=== PATIENT | female | born 1975 | race Caucasian/White ===

== ENCOUNTER 2016-07-27 10:04 | Day surgery (SDC) | payer OTHER ==
[~2016-07-27 10:04] MED LIST: IV START KIT ONE; LACTATED RINGERS 1,000 ML ONE
[2016-07-27] MEDS ORDERED: SODIUM BICARBONATE 4.2% VIAL 5 ML IV ONE (10:05)
[2016-07-27] MEDS ORDERED: LIDOCAINE 1% (PRES FREE) 30 ML VIAL SUB-Q ONE (10:05)
[2016-07-27] MEDS ORDERED: METHYLENE BLUE 1% 1ML VIAL IV ONE (10:05)
[2016-07-27] MEDS ORDERED: LEVOFLOXACIN 500 MG/D5W 100 ML 100 ML IV ONE (10:10)
[2016-07-27] MEDS ORDERED: LEVOFLOXACIN 500 MG/D5W 100 ML 100 ML IV PRN (10:30)
[2016-07-27] MEDS ORDERED: KETAMINE HCL 50 MG/ML 1 ML DOSE ONE (10:38)
[2016-07-27] MEDS ORDERED: LIDOCAINE 2% (PRES FREE) 5 ML VIAL ONE (10:38)
[2016-07-27] MEDS ORDERED: MIDAZOLAM HCL 1 MG/ML 2ML VIAL ONE (10:38)
[2016-07-27] MEDS ORDERED: DEXAMETHASONE SOD PHOS 4 MG/1 ML VIAL ONE (10:38)
[2016-07-27] MEDS ORDERED: FENTANYL 100 MCG/2 ML VIAL ONE ×2 (10:38→14:23)
[2016-07-27] MEDS ORDERED: PROPOFOL 60 ML IV ONE (10:38)
[2016-07-27] MEDS ORDERED: METOCLOPRAMIDE HCL 5 MG/ML 2ML VIAL ONE (10:38)
[2016-07-27] MEDS ORDERED: ONDANSETRON 4 MG/2ML 2 ML VIAL ONE (10:38)
[2016-07-27] MEDS ORDERED: Heparin Sodium Flush 50 unit/5 ml syringe ONE (11:45)
[2016-07-27] MEDS ORDERED: BUPIVACAINE 0.5% (PRES FREE) 30 ML VIAL ONE (11:45)
[2016-07-27] MEDS ORDERED: SODIUM CHLORIDE 0.9% 50 ML ONE (11:46)
[2016-07-27] MEDS ORDERED: FENTANYL 100 MCG/2 ML VIAL IV PRN (13:41)
[2016-07-27] MEDS ORDERED: PROMETHAZINE HCL 25 MG/ML VIAL IM PRN (13:41)
[2016-07-27] MEDS ORDERED: NALOXONE HCL 0.4 MG/ML VIAL IV PRN (13:41)
[2016-07-27] MEDS ORDERED: ONDANSETRON 4 MG/2ML 2 ML VIAL IV PRN ×2 (13:41→16:55)
[2016-07-27] MEDS ORDERED: HYDROMORPHONE HCL 1 MG/ML SYRINGE IV PRN (13:41)
[2016-07-27] MEDS ORDERED: ATROPINE SULFATE 0.4 MG/1 ML VIAL IV PRN (13:41)
[2016-07-27] MEDS ORDERED: LACTATED RINGERS 1,000 ML IV SCH (13:45)
[2016-07-27] MEDS ORDERED: ALBUTEROL/IPRATROPIUM 2.5/0.5 MG 3 ML/EACH DOSE ONE (15:55)
--- NOTE | 2016-07-27 15:58 | MAMM ---
WIRE LOCALIZATION PROCEDURE, LEFT BREAST SPECIMEN FILMS HISTORY: Wire localization for left lumpectomy. Consent was acquired by the clinical service. The patient's biopsy clip was localized with the left breast in lateral position a grid paddle. Overlying soft tissues were prepped. 1% lidocaine was utilized to infiltrate the soft tissues. Subsequently, a UTOPY hookwire needle was advanced to the clip using mammographic guidance. 0.3 mL of methylene blue was injected, and the hook wire deployed. Subsequent imaging demonstrates the wire tip 2.3 cm deep to the lesion on lateral view. Subsequent specimen films were submitted, the specimen films demonstrating the wire, biopsy clip, and mass lesion. The patient tolerated procedure well with no immediate complications. IMPRESSION: Wire localization procedure for guidance of left-sided lumpectomy. Specimen radiograph confirms resection of wire, mass lesion, and biopsy clip.
[2016-07-27] MEDS ORDERED: ALBUTEROL/IPRATROPIUM 2.5/0.5 MG 3 ML/EACH DOSE NEB ONE (16:36)
--- NOTE | 2016-07-27 16:51 | RAD ---
PORTABLE CHEST RADIOGRAPH HISTORY: Status post Port-A-Cath placement, wheezing Frontal portable chest radiograph dated 07/27/2016. COMPARISON: None. FINDINGS: FOCAL AIRSPACE OPACITY: Perihilar opacities; while these may be exaggerated by low lung volumes, this may reflect early edema. PLEURAL EFFUSION: None. CARDIOMEDIASTINAL SILHOUETTE: Nonenlarged. Right-sided port catheter. PNEUMOTHORAX: None identified. OSSEOUS STRUCTURES: No grossly destructive lesions. POSTSURGICAL CHANGE: Clips compatible with left axillary dissection. Left-sided surgical drain. IMPRESSION: Perihilar opacities, edema and pneumonia are possible. Low lung volumes. Right port catheter with no pneumothorax. Evidence of left axillary dissection.
[2016-07-27] MEDS ORDERED: MORPHINE SULFATE 2 MG/ML SYRINGE IV PRN (16:55)
[2016-07-27] MEDS ORDERED: KETOROLAC TROMETHAMINE 30 MG/ML 1 ML VIAL IV PRN (16:55)
--- NOTE | 2016-07-27 16:56 | RAD ---
INTRAOPERATIVE FLUOROSCOPY HISTORY: Port-A-Cath placement. TECHNIQUE: 17 seconds of fluoroscopy time was provided for Dr. Dr. Guy for purposes of procedural guidance. 3 fluoroscopic spot images were submitted for review. FINDINGS: Right-sided port catheter is noted, tip not well seen images, distal most portion visible overlies the superior vena cava. IMPRESSION: Fluoroscopy provided for procedural guidance, clinically for right-sided port catheter placement.
[2016-07-27 17:27] VITALS: BMI 37.9
[2016-07-27] MEDS: OXYCODONE/ACETAMINOPHEN 5/325 MG TABLET PO PRN (19:04)
[2016-07-27] MEDS ORDERED: BUPROPION HCL 100 MG TABLET ONE (20:31)
[2016-07-27] MEDS ORDERED: METFORMIN HCL 500 MG TABLET PO SCH (21:00)
[2016-07-27] MEDS ORDERED: VENLAFAXINE HCL 75 MG TABLET PO SCH (21:00)
[2016-07-27] MEDS ORDERED: PRAVASTATIN SODIUM 20 MG TABLET PO SCH (21:00)
[2016-07-27] MEDS ORDERED: BUPROPION HCL 200 MG PO SCH (21:00)
[2016-07-27] MEDS ORDERED: CYCLOBENZAPRINE HCL 10 MG TABLET PO SCH (21:00)
[2016-07-27] MEDS ORDERED: GABAPENTIN 300 MG CAPSULE PO SCH (21:00)
[2016-07-28] MEDS: OXYCODONE/ACETAMINOPHEN 5/325 MG TABLET PO PRN ×2 (01:22→07:45)
--- NOTE | 2016-07-28 06:31 | OP ---
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 PROCEDURE: Left needle localized lumpectomy, axillary lymph node dissection, right subclavian power port placement. SURGEON: David Guy M.D. ANESTHESIA: Vickey, general INDICATIONS: This is a 40-year-old female who has a small lesion in the left breast that was found to be invasive ductal carcinoma. Despite a small size she had significant metastatic disease in the lymphatics. She has elected to proceed with breast conservation. She is going to require adjuvant chemotherapy and port placement was recommended. DESCRIPTION: With informed consent she first was taken to radiology where her breast cancer was needle localized. She then was taken to the operating room where she was laid supine on the operating room table. General anesthesia was administered. The left arm was placed on an arm board. The right arm was tucked. The chest, neck, and axillary regions on the left were prepped and draped in a sterile fashion. I started with a power port on the right side. Local anesthetic was administered lateral to the right clavicle. A needle was used to cannulate the right subclavian vein. A J-wire was placed. Fluoroscopy demonstrated the wire in the superior vena cava. The needle was withdrawn. An oblique incision was made. A prepectoral pocket was created. A dilator introducer was placed over the wire. The wire and dilator were removed. The catheter was placed through the introducer and tip the localized at the superior vena cava right atrial junction. The catheter was cut to length, ,attached to port, and placed in the prepectoral pocket and secured at two points with some 2-0 Prolene.. I accessed the port and aspirated fluid and air. I then injected saline. I injected some heparinized saline into the catheter. The wound was irrigated. We appeared to have adequate hemostasis. The subcutaneous tissues were brought together with some 3-0 Vicryl and the skin was closed with a running subcuticular 4-0 Monocryl. Mastisol and Steri-Strips were placed. On the left, the exit site of the wire was just below the area of the axilla. I made an incision in an oblique fashion cephalad to the wire. A skin flap was created inferiorly until the wire was able to be brought out through the incision. A lumpectomy was performed with curved Evans scissors until we were beyond the wire. When the specimen was excised it was labeled with a short stitch superior, a long stitch lateral. The wire would also be lateral. A double stitch was placed deep. This was placed within view box and taken to radiology. Radiographs demonstrated the mass and clip within the middle portion of the specimen. Through the same incision it was easy to palpate and multiple enlarged lymph nodes. Once into the axillary tissue I dissected to the lateral chest wall. I followed the pectoralis muscles up to the axillary vein. I followed the axillary vein out to the thoracodorsal neurovascular bundle. A nerve was clearly identified and preserved. I meticulously dissected the lymphatic tissue out from the apex of the axilla with clips placed on small vessels or lymphatics. There is a fair amount of blunt dissection performed as well. The long thoracic nerve was identified along the chest wall. There were multiple hard large and small lymph nodes within the axillary tissue. Once the specimen was excised it was sent off to pathology. I inspected within the wound. There was quite a bit of fatty tissue because of the patient's obesity. I did not find any additional enlarged palpable lymph nodes. The wound was irrigated with water. A 10 GARRETT drain was placed in the wound exiting through a stab incision inferiorly. The subcutaneous tissue was brought together with 3-0 Vicryl and the skin was closed with a running subcuticular 4-0 Monocryl. Mastisol and Steri-Strips were placed. Sterile dressings were applied. She tolerated the procedure and was taken to the recovery room in stable condition. Note was made that needle, instrument, and lap counts were reported as correct at the time of closure. JOB: [id number] CC: Dr. José Antonio Doe
--- NOTE | 2016-07-28 06:48 | PDOC43 ---
- Subjective Subjective: Reports Pain Tolerable, Denies Nausea - Objective Vital Signs Temperature 98.2 F 07/28/16 03:20 Pulse Rate 92 07/28/16 03:20 Respiratory Rate 18 07/28/16 03:20 Blood Pressure 121/79 07/28/16 03:20 O2 Saturation by Pulse Oximetry 95 07/28/16 03:20 Oxygen Delivery Method Nasal Cannula Oxygen Flow Rate 2 07/27/16 07/27/16 16:01 10:34 POC Capillary Glucose 131 H 124 H Active Medication Orders Category Date Time Status Bupropion HCl Sr Med 07/27/16 21:00 Active 100 mg PO BID Cyclobenzaprine HCl [Flexeril] Med 07/27/16 21:00 Active 10 mg PO BEDTIME Gabapentin [Neurontin] Med 07/27/16 21:00 Active 300 mg PO BEDTIME Ketorolac Tromethamine [Toradol] Med 07/27/16 16:55 Active 30 mg IV Q6H PRN Metformin HCl [Glucophage] Med 07/27/16 21:00 Active 500 mg PO BID Morphine Sulfate Med 07/27/16 16:55 Active 1 - 6 mg IV Q1H PRN Ondansetron 4 mg/2ml Vial [Zofran] Med 07/27/16 16:55 Active 4 mg IV Q6H PRN Oxycodone HCl/Acetaminophen [Percocet 5/325] Med 07/27/16 16:55 Active 1 - 2 tab PO Q4H PRN Pantoprazole Sodium [Protonix] Med 07/28/16 09:00 Active 40 mg PO DAILY Pravastatin Sodium [Pravachol] Med 07/27/16 21:00 Active 40 mg PO BEDTIME Venlafaxine HCl [Effexor] Med 07/27/16 21:00 Active 75 mg PO BID Intake and Output 07/26/16 07/27/16 07/28/16 06:59 06:59 06:59 Intake Total 2550 Output Total 2395 Balance 155 Tubes and Drains Output GARRETT #1 60 GARRETT #1 35 General: Alert, Oriented x3 Wound: Dressing Clean/Dry/Intact - Assessment/ Plan (1) Breast cancer Qualifiers: Breast location: upper outer quadrant of breast Patient sex: female Laterality: left Qualifier Code: (C50.412) Malignant neoplasm of upper- outer quadrant of left female breast Status: Acute Assessment/ Plan: No respiratory symptoms. Discharge today after drain teaching. Follow-up next week.
[2016-07-28 08:06] VITALS: BP 109/51
[2016-07-28] MEDS ORDERED: PANTOPRAZOLE 40 MG TABLET DR PO SCH (09:00)
--- NOTE | 2016-08-01 12:21 | SURGPATH ---
[facility] [address] [place] [id number] Patient Name: FIDENCIO HENAO MR#: [id number] : 1975 Gender: F Specimen #: [id number] Collected: 07/27/2016 Received: 07/28/2016 Reported: 08/01/2016 Submitting Phys: ARNIE MORA Copy To Phys: [facility] Clinical History / Pre-Operative Diagnosis: LEFT BREAST CARCINOMA Specimen Source / Surgical Procedure Performed: #1-LEFT BREAST LUMPECTOMY (SHORT-SUPERIOR, LONG-LATERAL, DOUBLE-DEEP); #2-left axillary node dissection Interpretation: 1. LEFT BREAST, LUMPECTOMY: - INVASIVE DUCTAL CARCINOMA, GRADE 3 - STAGE: pT1c N3a - SEE SYNOPTIC REPORT 2. LYMPH NODES, LEFT AXILLA, AXILLARY DISSECTION: - METASTATIC CARCINOMA IN 15 OF 18 LYMPH NODES (15/18) BREAST CANCER CASE SUMMARY: SPECIMEN IDENTIFICATION: Left breast, lumpectomy, without sentinel node, with other nodes TUMOR SITE: Not specified TUMOR SIZE: Dimension of largest focus of invasion: 1.5 cm TUMOR FOCALITY: Single focus of invasive carcinoma HISTOLOGIC TYPE: Invasive ductal carcinoma TNM DESCRIPTORS: Not applicable PRIMARY TUMOR STAGE: pT1c: Tumor >10 mm but d20 mm in greatest dimension REGIONAL LYMPH NODE STAGE: pN3a: Metastases in 10 or more axillary lymph nodes ELIZABETH COMBINED HISTOLOGIC GRADE: Grade 3 (Total score 9 ) TUBULE FORMATION: Minimal - less than 10% (score=3) NUCLEAR PLEOMORPHISM: Marked variation in size (score=3) MITOTIC RATE: Score=3 SKIN INVOLVEMENT: Skin not present SKELETAL MUSCLE INVOLVEMENT: Skeletal muscle not present ASSOCIATED DUCTAL CARCINOMA IN SITU: DCIS is present ESTIMATED EXTENT OF DCIS: Greatest dimension: 1.6 cm Number of blocks with DCIS: 5 Number of blocks examined: 9 ARCHITECTURAL PATTERN OF DCIS: Solid NUCLEAR GRADE OF DCIS Grade III (high) NECROSIS IN DCIS: Present, comedo LOBULAR CARCINOMA IN SITU (LCIS): Not identified MARGINS: Margins uninvolved by invasive carcinoma: Distance from closest margin: 5 mm Distance from superior margin: 5 mm Distance from inferior margin: 6 mm Distance from anterior margin: 7 mm Distance from posterior margin: 5 mm Distance from medial margin: 10 mm Distance from lateral margin: >10 mm Margins uninvolved by DCIS: Distance from closest margin: 1 mm Distance from superior margin: 4 mm Distance from inferior margin: 1 mm Distance from anterior margin: 5 mm Distance from posterior margin: 5 mm Distance from medial margin: 10 mm Distance from lateral margin: >10 mm LYMPH NODES: Total nodes involved:Total nodes examined (including sentinel nodes): (15/18) Total sentinel nodes involved / Total sentinel nodes examined: None submitted Size of largest metastasis: 20 mm Extranodal extension: Absent Number of lymph nodes with macrometastases (>2.0 mm): 14 Number of lymph nodes with micrometastases (>0.2 mm to 2.0 mm): 1 Number of lymph nodes with isolated tumor cells (d0.2 mm): 0 RESPONSE TO PRESURGICAL THERAPY IN THE BREAST: No known presurgical therapy LYMPH VASCULAR INVASION: Not identified DERMAL LYMPH VASCULAR INVASION: Skin not present MICROCALCIFICATIONS: Not Identified ANCILLARY STUDIES: ER: 90 Percent, Positive (Estrogen receptor clone [id number]) PgR: 80 Percent, Positive (Progesterone receptor clone 16) HER2: Negative (IHC, clone [id number]) Performed on prior case [id number] ADDITIONAL PATHOLOGIC FINDINGS: Changes secondary to previous biopsy procedure Electronically Signed Out Talya Adrian M.D. Gross Description: #1-The specimen is received in a formalin filled container labeled with the patient's name. SPECIMEN: Left breast lumpectomy Fixation: Time to fixation, 18.5 hours; time of fixation, 10.5 hours Tissue(s) included: Left breast tissue Section, unsectioned before receipt: Unsectioned Weight: 38 g Dimensions: 6.3 cm medial to lateral, 4.4 cm and superior to inferior, 3.1 cm and anterior to posterior Dimensions and description of skin (if included): Not included Orientation (if specified): Short-superior, long-lateral, double-deep (posterior) Margin designation: anterior orange, posterior black, superior blue, inferior green, medial red, lateral yellow. TUMOR: Size: 1.5 cm medial to lateral, 1 cm from superior to inferior, 1 cm from anterior to posterior Descriptive features: Ill-defined, stellate and gritty lake-walker Status of surgical margins: 1 cm each from the medial, superior, inferior, anterior and posterior margins, 4 cm from the lateral margin Correlation with imaging studies: The specimen has a needle localization wire in place which enters the specimen laterally and passes through the entire specimen terminates in the medial margin. Other(s): The specimen is multiply sectioned perpendicular to the medial/lateral axis, into 11 slices, to reveal predominantly soft lobular adipose tissue with a small amount of pale oneill fibroglandular tissue. The mass spans slice #3 and #4. Multiple sections are submitted going from medial to lateral respectively including the entire mass. TISSUE(S) SUBMITTED FOR MICROSCOPIC EVALUATION: 1A-two perpendicular sections from slice #1, medial end 1B-entire slice #2 1C-superior half of slice #3 including medial edge of mass 1D-inferior half of slice #3 1E-superior half of slice #4 including lateral edge of mass 1F-inferior half of slice #4 1G-superior half of slice #5 1H-inferior half of slice #5 1I-two perpendicular sections from slice #11, lateral end #2 The specimen is received in a formalin filled container labeled with the patient's name and "left axillary node dissection". A lobular excision of yellow-walker, fibrofatty tissue is 10.0 x 8.0 x 3.5 cm and 113 g. Sectioning reveals 19 fatty, yellow-walker tentatively identified lymph nodes, 0.5-3.5 cm. Some of the larger lymph nodes have a firm, white lake cut surface and are only representatively sampled. Summary of sections: 2A-six small intact lymph nodes 2B-five small intact lymph nodes 2C-single multiply sectioned lymph node [id number] section of the larger grossly positive lymph nodes Celeste Veras Microscopic Description: 1. Sections from the lumpectomy show invasive ductal carcinoma. There is minimal tubule formation with marked nuclear pleomorphism and a high mitotic rate. The tumor is surrounded by a prominent inflammatory response there is solid DCIS which extends beyond the tumor. A 1 mm area of DCIS is present less than 1 mm from the inferior margin. The DCIS has solid growth with central comedonecrosis. Biopsy related changes are present in the center of the tumor. 2. Sections from the lymph node show metastatic carcinoma in the majority of the lymph nodes with a maximum tumor dimension of 2 cm. No extracapsular extension is seen in any of the lymph nodes. 1: [id number], [id number] 2: 70484 C50.012
== END 2016-07-28 08:50 | disposition home or self-care (01) ==
LOC: SDC 10:04 → MS 17:23 → SDC 07-28 08:50
PROVIDERS: ATTEND Surgery
PROC: 05H533Z Insertion of Infusion Device into Right Subclavian Vein, Percutaneous Approach (ICD-10-PCS; principal; 2016-07-28)
PROC: 07B60ZX Excision of Left Axillary Lymphatic, Open Approach, Diagnostic (ICD-10-PCS; principal; 2016-07-28)
PROC: 0HBU0ZZ Excision of Left Breast, Open Approach (ICD-10-PCS; principal; 2016-07-28)
DX: C50.412 Malignant neoplasm of upper-outer quadrant of left female breast (principal); C77.3 Secondary and unspecified malignant neoplasm of axilla and upper limb lymph nodes; K58.9 Irritable bowel syndrome, unspecified; R59.1 Generalized enlarged lymph nodes; F32.9 Major depressive disorder, single episode, unspecified; E11.9 Type 2 diabetes mellitus without complications; I10 Essential (primary) hypertension; E78.00 Pure hypercholesterolemia, unspecified; Z79.84 Long term (current) use of oral hypoglycemic drugs; Z79.82 Long term (current) use of aspirin; F17.200 Nicotine dependence, unspecified, uncomplicated
CPT/HCPCS: 76000; 71023; 76098; 19281; 94010; 19302; 36561; J3010 ×2; A9270 ×7; J1100; J1956; J2765; J2250; J2001; J2405; J7120; J1642